=== PATIENT | male | born 1995 | race Caucasian/White ===

== ENCOUNTER 2018-01-15 21:26 | Emergency (ER) | payer OTHER ==
[~2018-01-15] VITALS: Ht 175.3 cm; Wt 108.9 kg
[2018-01-15 21:33] VITALS: BP_SYST 142
[2018-01-15] MEDS ORDERED: PREDNISONE 20 MG TABLET PO ONE (22:30)
[2018-01-15] MEDS ORDERED: KETOROLAC TROMETHAMINE 30 MG VIAL IM ONE (22:30)
[2018-01-15] MEDS ORDERED: DOXYCYCLINE HYCLATE 100 MG CAPSULE PO ONE (23:15)
[2018-01-15] MEDS ORDERED: AZITHROMYCIN 250 MG TABLET PO ONE (23:15)
[2018-01-16 00:11] VITALS: BP_SYST 142
== END 2018-01-16 00:11 | disposition home or self-care (01) ==
LOC: SED 21:26
DX: J03.90 Acute tonsillitis, unspecified (principal); R42 Dizziness and giddiness; Z88.1 Allergy status to other antibiotic agents
CPT/HCPCS: 36415; 86403; 87081; 96372; 99284; J1885; J7512; Q0144; 87070-TC; 87075-TC

== ENCOUNTER 2018-02-22 15:39 | Emergency (ER) | payer OTHER ==
[~2018-02-22] VITALS: Ht 175.3 cm; Wt 103.0 kg
[2018-02-22 15:48] VITALS: BP_SYST 126
[2018-02-22 16:58] LABS: BILIRUBIN,URINE 2+ (NEGATIVE); BLOOD, URINE NEGATIVE (NEGATIVE); CLARITY/URINE CLEAR (CLEAR); COLOR,URINE YELLOW (YELLOW); GLUCOSE,URINE NEGATIVE (NEGATIVE); KETONES,URINE 3+ (NEGATIVE); LEUKOCYTE ESTERASE ,URINE NEGATIVE (NEGATIVE); NITRITE, URINE NEGATIVE (NEGATIVE); PROTEIN URINE NEGATIVE (NEGATIVE); UROBILINOGEN,URINE 0.2 (0.2-1.0)
[2018-02-22 17:06] LABS: BACTERIA,URINE FEW /HPF (None Seen); CALCIUM OXALATE CRYSTALS,UR 0-10 /HPF (None Seen); MUCUS,URINE 2+ /LPF (None Seen); RBC,URINE 0-3 /HPF (0-3); WBC,URINE 0-3 /HPF (0-3)
[2018-02-22 17:34] LABS: BASOPHILS # (AUTO) 0.1 K/uL (0.0-0.2); EOSINOPHILS % (AUTO) 0.9 % (0.0-4.0); HEMATOCRIT 49.5 % (36-54); HEMOGLOBIN 16.5 g/dL (14.0-18.0); LYMPHOCYTES # (AUTO) 1.7 K/uL (1.0-5.5); MEAN CORPUSCULAR HEMOGLOBIN 28 pg (27-31); MEAN CORPUSCULAR HGB CONC 33 % (32-36); MEAN CORPUSCULAR VOLUME 84 fL (79.0-98.0); MONOCYTES # (AUTO) 0.4 K/uL (0.0-1.0); MONOCYTES % (AUTO) 7.2 % (1.7-9.3); NEUTROPHILS # (AUTO) 2.8 K/uL (1.8-7.7); NEUTROPHILS % (AUTO) 55.9 % (40.0-70.0); PLATELET COUNT (AUTO) 253 K/uL (130-430); RED BLOOD CELL COUNT(AUTO) 5.87 MIL/uL (4.2-6.2); RED CELL DISTRIBUTION WIDTH 13.9 % (9.0-15.0)
[2018-02-22 17:46] LABS: CALCIUM 9.9 mg/dL (8.4-11.0); CREATININE 0.96 mg/dL (0.55-1.30); POTASSIUM 4.2 mmol/L (3.5-5.1)
[2018-02-22 17:50] LABS: ALBUMIN 4.4 g/dL (3.4-4.8); TOTAL BILIRUBIN 0.9 mg/dL (0.0-1.0)
[2018-02-22] MEDS ORDERED: MAGNESIUM CITRATE 300 ML ORAL SOLUTION PO ONE (18:45)
[2018-02-22 18:50] VITALS: BP_SYST 138
[2018-02-24 10:09] LABS: EBV AB VCA, IgM <36.0 U/mL (0.0-35.9)
== END 2018-02-22 18:50 | disposition home or self-care (01) ==
LOC: SED 15:39
DX: R10.12 Left upper quadrant pain (principal); K21.9 Gastro-esophageal reflux disease without esophagitis; R03.0 Elevated blood-pressure reading, without diagnosis of hypertension
CPT/HCPCS: 36415; 74018; 80053; 81000-TC; 83690-TC; 85025; 86665; 99285